=== PATIENT | male | born 1960 | race Caucasian/White ===

== ENCOUNTER → 2019-12-27 | Outpatient (CLI) | payer OTHER ==
--- NOTE | 2019-12-27 09:16 | MR ---
EXAMINATION TYPE: MR shoulder RT wo con DATE OF EXAM: 12/27/2019 COMPARISON: NONE HISTORY: Rot Cuff Tear or Rupture, Rt shoulder pain x 1 month, slipped on ice TECHNIQUE: Multiplanar, multisequence imaging of the right shoulder is performed without contrast. FINDINGS: Rotator Cuff: Complete retracted tear of supraspinatus tendon with some retraction to level of distal clavicle coronal image 16. Also complete retracted tear of the infraspinatus tendon with some retrac tion to similar level near coronal image 22. Teres minor remains intact. There is moderate fluid surr ounding muscle bulk and mild tendinous junction measures with more focal fluid extending towards alisa ral head and inferiorly coronal image 23. Subscapularis tendon is intact. Rotator cuff muscle bulk is preserved. Acromioclavicular Joint: Incidental moderate narrowing and mild spurring with mild/moderate capsular hypertrophy. Distal acromion morphology unremarkable. Glenohumeral Joint: High riding humeral head suggestive of underlying instability. Fairly moderate na rrowing. No significant spurring. Small to moderate glenohumeral joint effusion. Finding most promine nt posterior aspect seen best on axial images. Labrum: The labrum appears grossly intact given limitation of non-arthrogram study. Biceps Tendon: The long head of biceps is in normal location within bicipital groove. Focus of increa sed signal centrally distal extracapsular portion seen on last few axial images consistent with parti al tearing. Edema and tendon sheath with surrounding edema noted most prominent just inferior to the subscapularis tendon. There is additional involvement of the medial proximal humeral muscle towards l ower axial images. Bone marrow signal: No focal abnormal marrow signal is appreciated. Other: No additional significant abnormality is appreciated. IMPRESSION: Significant full-thickness retracted tears of supraspinatus and infraspinatus tendons wit h evidence of instability as there is high riding humeral head noted. Persistent areas of hematoma an d/or edema as detailed above. Partial tearing of the visualized distal portion of long head of biceps tendon is noted.
== END | disposition home or self-care (01) ==
LOC: RADMRIMAIN 08:00
PROVIDERS: ATTEND Nurse Practitioner Acute Care
DX: M75.121 Complete rotator cuff tear or rupture of right shoulder, not specified as traumatic (principal)

== ENCOUNTER 2021-07-17 16:15 | Emergency (ER) | payer OTHER ==
[2021-07-17] MEDS ORDERED: ASPIRIN 81 MG PO STA (16:37)
[2021-07-17 16:44] VITALS: RESP 18
[2021-07-17] MEDS ORDERED: ONDANSETRON 4 MG/2 ML VIAL IVP STA ×2 (16:46→21:21)
[2021-07-17] MEDS ORDERED: diphenhydrAMINE 50 MG/ML 1 ML VIAL IVP STA (16:46)
[2021-07-17] MEDS ORDERED: SODIUM CHLORIDE 0.9% 1,000 ML IV ONE (16:46)
[2021-07-17] MEDS ORDERED: MORPHINE SULFATE 4 MG/ML SYRINGE IVP STA ×2 (16:46→21:21)
[2021-07-17] MEDS ORDERED: FAMOTIDINE 20 MG/2 ML VIAL IV STA (16:46)
[2021-07-17 17:02] LABS: Basophils # (A) 0.1 k/uL (0-0.2); Basophils % (A) 1 %; Eosinophils # (A) 0.2 k/uL (0-0.7); Eosinophils % (A) 2 %; HCT 54.6 % (39.0-53.0); HGB 18.1 gm/dL (13.0-17.5); Lymphocytes # (A) 1.5 k/uL (1.0-4.8); Lymphocytes % (A) 15 %; MCH 31.4 pg (25.0-35.0); MCHC 33.1 g/dL (31.0-37.0); MCV 94.8 fL (80.0-100.0); Mean Platelet Volume 7.5; Monocytes # (A) 0.6 k/uL (0-1.0); Monocytes % (A) 6 %; Neutrophils # (A) 7.6 k/uL (1.3-7.7); Neutrophils % (A) 75 %; Platelet Count 294 k/uL (150-450); RBC 5.76 m/uL (4.30-5.90); RDW 13.2 % (11.5-15.5); WBC 10.1 k/uL (3.8-10.6)
[2021-07-17 17:14] LABS: ALT 238 U/L (4-49); AST 241 U/L (17-59); African American GFR (CKD) >90 (>60 ml/min/1.73 sqM); Albumin 4.7 g/dL (3.5-5.0); Alkaline Phosphatase 122 U/L (38-126); Anion Gap 10 mmol/L; Blood Urea Nitrogen 18 mg/dL (9-20); Calcium 10.2 mg/dL (8.4-10.2); Carbon Dioxide 28 mmol/L (22-30); Chloride 102 mmol/L (98-107); Glucose 93 mg/dL (74-99); Magnesium 2.1 mg/dL (1.6-2.3); Non-African American GFR(CKD) 81 (>60 ml/min/1.73 sqM); Sodium 140 mmol/L (137-145); Total Protein 7.4 g/dL (6.3-8.2)
[2021-07-17 17:31] LABS: INR 0.9 (<1.2); Partial Thromboplastin Time 25.4 sec (22.0-30.0); Prothrombin Time 10.2 sec (9.0-12.0)
[2021-07-17 17:59] LABS: Amylase 5283 U/L (30-110)
[2021-07-17 18:03] LABS: Lipase >20000 U/L (23-300)
--- NOTE | 2021-07-17 18:21 | US ---
EXAMINATION TYPE: US gallbladder DATE OF EXAM: 07/17/2021 COMPARISON: NONE CLINICAL HISTORY: rule out cholecystitis. RUQ pain EXAM MEASUREMENTS: Liver Length: 16.6 cm Gallbladder Wall: 0.4 cm CBD: 0.6 cm Right Kidney: 12.4 x 5.6 x 5.5 cm Pancreas: Obscured by bowel gas Liver: wnl, scanned through ribs due to bowel gas. Limited visualization of left lobe. Gallbladder: Multiple mobile echogenic foci. Thickened wall. Evidence for sonographic Perla's sign: neg CBD: Partial seen, obscured by bowel gas Right Kidney: No hydronephrosis or masses seen IMPRESSION: There is gallbladder wall thickening and gallstones. This is consistent with acute and chronic cholec ystitis. No dilated ducts.
--- NOTE | 2021-07-17 18:59 | XR ---
EXAMINATION TYPE: XR chest 2V DATE OF EXAM: 07/17/2021 COMPARISON: NONE HISTORY: Chest pain TECHNIQUE: Review FINDINGS: Heart and mediastinum are within normal limits. Lungs are clear of infiltrate. There is no heart failure. There are no hilar masses. Bony thorax is intact. IMPRESSION: No active cardiopulmonary disease. Normal heart.
--- NOTE | 2021-07-17 20:26 | CT ---
EXAMINATION TYPE: CT abdomen pelvis DATE OF EXAM: 07/17/2021 COMPARISON: HISTORY: Epigastric pain. Pancreatitis. CT DLP: mGycm Automated exposure control for dose reduction was used. Images obtained from the diaphragm to the floor the pelvis with no contrast. FINDINGS: Lung bases are clear of consolidation. There is no pleural effusion. Heart size is normal. There is n o pericardial effusion. Liver spleen stomach gallbladder appear intact. The gallbladder wall appears slightly thickened and gallbladder has diameter of 3.4 cm. The bile ducts are not dilated. There is some mild fat stranding and edema around the pancreas. There is no adrenal mass. Kidneys have normal size. There is no hydronephrosis. Ureters are not dilat ed. There is no retroperitoneal adenopathy. Bladder distends smoothly. There is no inguinal hernia. T here is no evidence of pelvic mass. There is no free fluid in the pelvis. Appendix is lateral and marcio ears normal. There is no ascites or free air. There is no sign of a bowel obstruction. There are some spondylotic changes in the lumbar spine. There is no compression fracture. Bony pelvis appears intac t. There is multilevel degenerative disc space narrowing in the lumbar spine from T12 to L4 vertebra. There is spurring and osteosclerosis. There is no compression fracture. Bony pelvis is intact. The hip joints are intact. IMPRESSION: There is mild edema around the pancreas consistent with acute pancreatitis. Slight gallbladder wall thickening that could relate to cholecystitis. No dilated ducts.
--- NOTE | 2021-07-17 20:35 | ED ---
General Adult HPI - General Chief complaint: Chest Pain Stated complaint: Chest Pain Time Seen by Provider: 07/17/21 16:37 Source: patient, RN notes reviewed, old records reviewed Mode of arrival: wheelchair Limitations: no limitations - History of Present Illness Initial comments: Patient is a 61-year-old male with past medical history remarkable for multiple orthopedic surgeries presents emergency Department complaining of epigastric abdominal pain with some radiation to the inferior chest. States it has been on and off for multiple months, however over the last 2 days the episodes have been worse. He thought it may just be gas, and he has been attempting to belch to improve his symptoms. He states that is a burning pain that radiates subst ernally. Denies any dyspnea. Does endorse some nausea with bilious emesis. Denies any diarrhea. Endorses shortness breath when he is expressing episodes of emesis been no shortness of breath at rest. Denies any fevers or chills. States this hasn't happened before but not this severe. Denies any alcohol use, drug use. Denies any headache, weakness, numbness. He has no other acute complaints at this time. He has no urinary complaints. - Related Data Home Medications Medication Instructions Recorded Confirmed Cholecalciferol [Vitamin D3 (25 50 mcg PO DAILY 07/17/21 07/17/21 Mcg = 1000 Iu)] Levothyroxine Sodium 150 mcg PO DAILY 07/17/21 07/17/21 Testosterone Cypionate 200 mg IM Q14D 07/17/21 07/17/21 [Depo-Testosterone] Allergies Allergy/AdvReac Type Severity Reaction Status Date / Time ibuprofen [From Motrin] Allergy Nausea & Verified 07/17/21 17:46 Vomiting & Diarrhea Penicillins Allergy Swelling Verified 07/17/21 17:46 Review of Systems ROS Statement: Those systems with pertinent positive or pertinent negative responses have been documented in the HPI. Review of Systems: CONST: Denies fever EYES: Denies blurry vision ENT: Denies nasal congestion C/V: Endorses chest pain RESP: Denies shortness of breath GI: Endorses abdominal pain : Denies dysuria SKIN: Denies rash. MSK: Denies joint pain. NEURO: Denies headache ROS Other: All systems not noted in ROS Statement are negative. Past Medical History Additional Past Medical History / Comment(s): [facility] History of Any Multi-Drug Resistant Organisms: None Reported Past Surgical History: Orthopedic Surgery Additional Past Surgical History / Comment(s): neck surgery, faial reconstructive surgery, corinne knee, eye surgery Past Psychological History: PTSD Smoking Status: Never smoker Past Alcohol Use History: None Reported Past Drug Use History: Marijuana General Exam - General Exam Comments Initial Comments: General: Appears in significant amount of abdominal pain. HEAD: Normal with no signs of head trauma. EYES: PERRLA, EOMI, conjunctiva normal, no discharge. ENT: Hearing grossly intact, normal oropharynx. RESPIRATORY: Clear breath sounds bilaterally. No wheezes, rales, or rhonchi. C/V: Regular rate and rhythm. S1 and S2 auscultated, no edema, peripheral pulses 2+ and intact throughout ABD: Abdomen soft, nondistended. Patient is tender to palpation epigastric region and right upper quadrant. There are no peritoneal signs. No rebound tenderness. EXT: Normal range of motion, no obvious deformity SKIN: No rashes or lesions observed on exposed skin. NEURO: Alert and oriented 4. Limitations: no limitations Course Vital Signs 07/17/21 07/17/21 07/17/21 16:17 16:38 17:22 Temperature 98.3 F 98 F Pulse Rate 84 85 66 Respiratory 22 18 18 Rate Blood Pressure 136/91 140/92 137/91 O2 Sat by Pulse 99 96 Oximetry 07/17/21 07/17/21 18:46 20:00 Temperature Pulse Rate 79 75 Respiratory 18 18 Rate Blood Pressure 137/75 150/93 O2 Sat by Pulse 94 L 95 Oximetry Medical Decision Making - Medical Decision Making Based on the patient's presentation and physical exam, I cannot rule out cardiac etiology for his current symptoms, however have strong suspicion for abdominal etiology for his current symptoms. This includes cholecystitis versus pancreatitis. Therefore we will obtain laboratory studies as well as a cardiac workup including troponin, EKG, chest x-ray. We will also obtain a right upper quadrant ultrasound. Patient recently treated with a 1 L fluid bolus, as well as IV Pepcid, Benadryl, morphine, Zofran. Patient also be given an aspirin. He was in agreement with this plan. He will be connected to continuous cardiac monitoring while is here in the department. Patient's EKG shows no signs of acute ischemia. Patient's lavatory studies are remarkable for an elevated total bilirubin of 3.0, elevated AST and ALT of 241 238 respectively. Patient also has an elevated amylase of 5200 and an 83 an elevated lipase greater than 20,000. Patient's right upper quadrant ultrasound revealed gallbladder wall thickening and gallstones with no dilated ducts, however this is consistent with acute and chronic cholecystitis. Due to the patient's elevated pancreatic enzymes, did recommend we obtain a CT abdomen and pelvis, however patient is ALLERGIC to contrast so this will be done without contrast. The CT revealed mild edema around the pancreas consistent with acute pancreatitis as well as slight cold bladder wall thickening that could be related to cholecystitis. Due to the patient's severe laboratory abnormalities as well as findings of pancreatitis and cholecystitis on imaging, I did recommend that we admit the patient for evaluation. He was in agreement this plan. We currently do not have gastroenterology in-house in our facility and therefore patient will need to be transferred. I did discuss with the patient was in agreement with the plan. I also spoke with our on-call surgeon who was also in agreement with the plan. Patient be transferred to [facility]. Accepting physican is Dr. Molina. Patient was therefore transferred via ambulance in serious condition to [facility] for evaluation by gastroenterology and surgery for his pancreatitis and cholecystitis. - Lab Data Result diagrams: 07/17/21 16:49 07/17/21 16:49 Lab Results 07/17/21 07/17/21 07/17/21 Range/Units 16:49 16:49 16:49 WBC 10.1 (3.8-10.6) k/uL RBC 5.76 (4.30-5.90) m/uL Hgb 18.1 H (13.0-17.5) gm/dL Hct 54.6 H (39.0-53.0) % MCV 94.8 (80.0-100.0) fL MCH 31.4 (25.0-35.0) pg MCHC 33.1 (31.0-37.0) g/dL RDW 13.2 (11.5-15.5) % Plt Count 294 (150-450) k/uL MPV 7.5 Neutrophils % 75 % Lymphocytes % 15 % Monocytes % 6 % Eosinophils % 2 % Basophils % 1 % Neutrophils # 7.6 (1.3-7.7) k/uL Lymphocytes # 1.5 (1.0-4.8) k/uL Monocytes # 0.6 (0-1.0) k/uL Eosinophils # 0.2 (0-0.7) k/uL Basophils # 0.1 (0-0.2) k/uL PT 10.2 (9.0-12.0) sec INR 0.9 (<1.2) APTT 25.4 (22.0-30.0) sec Sodium 140 (137-145) mmol/L Potassium 4.0 (3.5-5.1) mmol/L Chloride 102 (98-107) mmol/L Carbon Dioxide 28 (22-30) mmol/L Anion Gap 10 mmol/L BUN 18 (9-20) mg/dL Creatinine 1.01 (0.66-1.25) mg/dL Est GFR (CKD-EPI)AfAm >90 (>60 ml/min/1.73 sqM) Est GFR (CKD-EPI)NonAf 81 (>60 ml/min/1.73 sqM) Glucose 93 (74-99) mg/dL Calcium 10.2 (8.4-10.2) mg/dL Magnesium 2.1 (1.6-2.3) mg/dL Total Bilirubin 3.0 H (0.2-1.3) mg/dL AST 241 H (17-59) U/L ALT 238 H (4-49) U/L Alkaline Phosphatase 122 (38-126) U/L Troponin I (0.000-0.034) ng/mL Total Protein 7.4 (6.3-8.2) g/dL Albumin 4.7 (3.5-5.0) g/dL Amylase 5283 H* (30-110) U/L Lipase >79049 H (23-300) U/L 07/17/21 Range/Units 16:49 WBC (3.8-10.6) k/uL RBC (4.30-5.90) m/uL Hgb (13.0-17.5) gm/dL Hct (39.0-53.0) % MCV (80.0-100.0) fL MCH (25.0-35.0) pg MCHC (31.0-37.0) g/dL RDW (11.5-15.5) % Plt Count (150-450) k/uL MPV Neutrophils % % Lymphocytes % % Monocytes % % Eosinophils % % Basophils % % Neutrophils # (1.3-7.7) k/uL Lymphocytes # (1.0-4.8) k/uL Monocytes # (0-1.0) k/uL Eosinophils # (0-0.7) k/uL Basophils # (0-0.2) k/uL PT (9.0-12.0) sec INR (<1.2) APTT (22.0-30.0) sec Sodium (137-145) mmol/L Potassium (3.5-5.1) mmol/L Chloride (98-107) mmol/L Carbon Dioxide (22-30) mmol/L Anion Gap mmol/L BUN (9-20) mg/dL Creatinine (0.66-1.25) mg/dL Est GFR (CKD-EPI)AfAm (>60 ml/min/1.73 sqM) Est GFR (CKD-EPI)NonAf (>60 ml/min/1.73 sqM) Glucose (74-99) mg/dL Calcium (8.4-10.2) mg/dL Magnesium (1.6-2.3) mg/dL Total Bilirubin (0.2-1.3) mg/dL AST (17-59) U/L ALT (4-49) U/L Alkaline Phosphatase (38-126) U/L Troponin I <0.012 (0.000-0.034) ng/mL Total Protein (6.3-8.2) g/dL Albumin (3.5-5.0) g/dL Amylase (30-110) U/L Lipase (23-300) U/L - EKG Data -: EKG Interpreted by Me EKG Comments: 12-lead Electrocardiogram Interpretation Note EKG was reviewed and interpreted by myself. 12-lead ECG performed at 1638 is interpreted by me as revealing normal sinus rhythm at a rate of 71 beats per minute. Powers is normal. [place] intervals 150 ms, QRS duration is 94 ms, QTc is 412 ms.. There were no ST or T wave abnormalities to suggest myocardial ischemia or injury. R wave progression across the precordium was satisfactory. By my interpretation this EKG is non-diagnostic for acute ischemia. Disposition Clinical Impression: Pancreatitis, Cholecystitis, Choledocholithiasis, Elevated LFTs, Elevated amylase and lipase, Nausea and vomiting Disposition: OTHER INSTITUTION NOT DEFINED Condition: Serious Referrals: [facility],Clinic [Primary Care Provider] - 1-2 days - Out of Hospital Transfer - Req. Specs Out of Hospital Transfer - Requested Specifics: Other Emergency Center (T ransferred to [facility] due to need for GI, which is not available at our facility.)
[2021-07-17 21:39] VITALS: BP 138/88; PULSE 72; TEMP 98.8
== END 2021-07-17 21:42 | disposition other institution (70) ==
LOC: EC 16:15
DX: K85.90 Acute pancreatitis without necrosis or infection, unspecified (principal); K80.20 Calculus of gallbladder without cholecystitis without obstruction; R94.5 Abnormal results of liver function studies; R74.8 Abnormal levels of other serum enzymes; R07.89 Other chest pain; Z88.0 Allergy status to penicillin; Z88.6 Allergy status to analgesic agent
CPT/HCPCS: 36415; 93005; 80053; 82150; 83690; 83735; 84484; 85025; 85610; 85730; 71046; 76705; 74176; 74177; 99285; 96374; 96375; 96376; J2270; J1200; J2405